=== PATIENT | male | born 1955 | race Caucasian/White ===

== ENCOUNTER → 2019-06-21 | Day surgery (SDC) | payer OTHER ==
[~2019-06-21] MED LIST: LACTATED RINGERS 1,000 ML IV SCH; LIDOCAINE 1% (10MG/ML) FOR IV START INTRADERMA PRN; LIDOCAINE 1% INJ 10MG/ML (20 ML MDV) ONE; PROPOFOL 10 MG/ML 20 ML VIAL IV ONE
[2019-06-21 06:58] VITALS: RESP 17; TEMP 97.7
--- NOTE | 2019-06-21 07:48 | P.PCN ---
Date of Procedure: 06/21/19 Procedure(s) Performed: BRIEF HISTORY: Patient is a 64-year-old, pleasant, male scheduled for an upper endoscopy for evaluation of severe dysphagia to certain solids for the last 2 weeks' duration. Has been complaining of epigastric pain, nausea and lower abdominal discomfort. Because of the dysphagia he had lost about 20 pounds. He was recently started on Prilosec 20 mg daily with no help. The emergency room on 3 different occasions and had a CT of abdomen and pelvis done last week which was negative. She was also complaining of some shortness of breath and covid 19 test was done which was negative.. PROCEDURE PERFORMED: Esophagogastroduodenoscopy with biopsy. PREOPERATIVE DIAGNOSIS: Dysphagia/weight loss of 2 weeks duration. IV sedation per anesthesia. PROCEDURE: After informed consent was obtained, the patient was brought into the endoscopy unit. IV sedation was administered by Anesthesia under continuous monitoring. Initially the Olympus GIF-140 video endoscope was inserted into the mouth. Esophagus intubated without any difficulty. It was gradually advanced into the stomach and duodenum and carefully examined. The bulb and the second part of the duodenum appeared normal. The scope at this time was withdrawn to the stomach, adequately insufflated with air, and upon careful examination, mucosa of the antrum, had mild diffuse gastritis and biopsies were done from this area. The body, cardia and the fundus appeared normal. The scope was then withdrawn into the esophagus. The GE junction was located at 39 cm from the incisors. Small sliding type hiatal hernia noted. There were linear erosions noted in the distal esophagus consistent with LA grade B reflux esophagitis. Rest of the esophagus appeared normal and the patient tolerated the procedure well. IMPRESSION: 1. Linear erosions in the distal esophagus consistent with LA grade B reflux esophagitis. 2. Small hiatal hernia 3. Mild diffuse antral gastritis. RECOMMENDATIONS: The findings of this examination were discussed with the patient as well as his family. He will increase the Prilosec to 20 mg twice daily to be taken half hour before breakfast and dinnertime and follow antireflux measures. He was advised to follow with the biopsy results and he'll be seen in office in 2 weeks.
[2019-06-21 07:59] VITALS: BP 99/72; PULSE 70
== END ==
LOC: ORWHC2ENDO 06:34
PROVIDERS: ATTEND Internal Medicine Gastroenterology
DX: K29.50 Unspecified chronic gastritis without bleeding (principal); K22.10 Ulcer of esophagus without bleeding; K21.9 Gastro-esophageal reflux disease without esophagitis; K44.9 Diaphragmatic hernia without obstruction or gangrene; J44.9 Chronic obstructive pulmonary disease, unspecified; Z79.82 Long term (current) use of aspirin; Z79.899 Other long term (current) drug therapy; Z87.891 Personal history of nicotine dependence
CPT/HCPCS: 43239; J2001; J2704; 88305

== ENCOUNTER 2019-08-28 09:02 | Day surgery (SDC) | payer OTHER ==
[2019-08-27 09:57] VITALS: BMI 30.9
[~2019-08-28 09:02] MED LIST changes: -LIDOCAINE 1% (10MG/ML) FOR IV START INTRADERMA PRN; -LIDOCAINE 1% INJ 10MG/ML (20 ML MDV) ONE; -PROPOFOL 10 MG/ML 20 ML VIAL IV ONE
[2019-08-28 09:30] VITALS: RESP 16; TEMP 97.6
[2019-08-28] MEDS ORDERED: PROPOFOL 10 MG/ML 20 ML VIAL IV ONE (10:11)
[2019-08-28 10:35] VITALS: BP 105/65
--- NOTE | 2019-08-28 10:36 | P.GSHP ---
History of Present Illness H&P Date: 08/28/19 CHIEF COMPLAINT: Colon screen HISTORY OF PRESENT ILLNESS: The patient is a 64-year-old male who presents for colon screen. Lower endoscopy was offered for further evaluation and management. PAST MEDICAL HISTORY: Please see list. PAST SURGICAL HISTORY: Please see list. MEDICATIONS: Please see list. ALLERGIES: Please see list. SOCIAL HISTORY: No illicit drug use FAMILY HISTORY: No reports of Crohn disease or ulcerative colitis. REVIEW OF ORGAN SYSTEMS: CONSTITUTIONAL: No reports of fevers or chills. PHYSICAL EXAM: VITAL SIGNS: Stable GENERAL: Well-developed pleasant in no acute distress. HEENT: No scleral icterus. Extraocular movements grossly intact. Moist buccal mucosa. NECK: Supple without lymphadenopathy. CHEST: Unlabored respirations. Equal bilateral excursions. CARDIOVASCULAR: Regular rate and rhythm. Distal 2+ pulses. ABDOMEN: Soft, nontender, nondistended. MUSCULOSKELETAL: No clubbing, cyanosis, or edema. ASSESSMENT: 1. Colon screen. PLAN: 1. Recommend proceeding with a lower endoscopy Past Medical History Past Medical History: Cancer, Chest Pain / Angina, COPD, GERD/Reflux Additional Past Medical History / Comment(s): hx skin cancer shoulder, emphysema, CP 06/20/19 - nl w/u, frequent "belching," occ loose stools, wgt loss 28# History of Any Multi-Drug Resistant Organisms: None Reported Past Surgical History: Heart Catheterization Additional Past Surgical History / Comment(s): ORIF lt 3rd finger - has pin, EGD 06/21/19 Past Anesthesia/Blood Transfusion Reactions: No Reported Reaction Smoking Status: Former smoker - Past Family History Father Family Medical History: Cancer Additional Family Medical History / Comment(s): lung cancer Brother(s) Additional Family Medical History / Comment(s): chrohns Sister(s) Additional Family Medical History / Comment(s): chrohns Medications and Allergies Home Medications Medication Instructions Recorded Confirmed Type Montelukast [Singulair] 10 mg PO HS 06/19/19 08/28/19 History Pantoprazole [Protonix] 40 mg PO DAILY 08/28/19 08/28/19 History hydrOXYzine HCL [Atarax] 50 mg PO DAILY PRN 08/28/19 08/28/19 History Allergies Allergy/AdvReac Type Severity Reaction Status Date / Time No Known Allergies Allergy Verified 08/28/19 09:28 Surgical - Exam Vital Signs Temp Pulse Resp BP Pulse Ox 97.6 F 57 L 16 143/81 96 08/28/19 09:23 08/28/19 09:23 08/28/19 09:23 08/28/19 09:23 08/28/19 09:23
--- NOTE | 2019-08-28 10:41 | P.PCN ---
Date of Procedure: 08/28/19 Description of Procedure: PREOPERATIVE DIAGNOSIS: Colonoscopy screening. History of polyps POSTOPERATIVE DIAGNOSIS: Colonoscopy screening. History of polyps OPERATION: Colonoscopy to the cecum, ileocecal valve and appendiceal orifice. SURGEON: Moni De La Paz MD. ANESTHESIA: MAC. INDICATIONS: The patient is a 64-year-old male who presents for colonoscopy screening. Last colonoscopy 5 years ago. Benefits and risks were described and informed consent was obtained. DESCRIPTION OF PROCEDURE: The patient had undergone Suprep. He had been brought into the operating room and laid in the left lateral decubitus position. After adequate intravenous sedation, the rectum was examined with 2% lidocaine jelly. The prostate was unremarkable. No external hemorrhoids were encountered. The rectal tone was within normal limits. No lesions were palpated in the rectal vault. An Olympus colonoscope was advanced until the cecum, ileocecal valve and appendiceal orifice were clearly viewed. The prep was excellent with clear visualization of the mucosal folds. The scope was removed with visualization of each mucosal fold. Scattered diverticulosis was encountered. No colonic polyps were found. No evidence of focal colitis was found. Retroflexion of the scope demonstrated grade 1 internal hemorrhoids without active bleeding or inflammation. The colon was desufflated. The patient had tolerated the procedure well. Withdrawal time was over 6 minutes. FINDINGS: Aronchick preparation quality scale 1 (1-5) Internal hemorrhoids, grade 1 No external prolapsed hemorrhoids. No arteriovenous malformations. No adenomatous polyps. No focal colitis. RECOMMENDATIONS: Lower endoscopy in 5 years, 2024 Plan - Discharge Summary Discharge Rx Participant: No New Discharge Prescriptions: Continue Montelukast [Singulair] 10 mg PO HS hydrOXYzine HCL [Atarax] 50 mg PO DAILY PRN PRN Reason: Insomnia Pantoprazole [Protonix] 40 mg PO DAILY Discharge Medication List Montelukast [Singulair] 10 mg PO HS 06/19/19 [History] Pantoprazole [Protonix] 40 mg PO DAILY 08/28/19 [History] hydrOXYzine HCL [Atarax] 50 mg PO DAILY PRN 08/28/19 [History] Follow up Appointment(s)/Referral(s): Moni De La Paz MD [STAFF PHYSICIAN] - As Needed Patient Instructions/Handouts: *Sur[facility] - (Anesthesia) Endoscopy Discharge Instructions Activity/Diet/Wound Care/Special Instructions: Repeat colonoscopy in 10 years, 2030 or Cologaurd Discharge Disposition: HOME SELF-CARE
[2019-08-28 10:59] VITALS: PULSE 63
== END 2019-08-28 11:16 | disposition home or self-care (01) ==
LOC: ORWHC2ENDO 09:02
PROVIDERS: ATTEND Surgery Plastic and Reconstructive Surgery
DX: Z12.11 Encounter for screening for malignant neoplasm of colon (principal); K57.30 Diverticulosis of large intestine without perforation or abscess without bleeding; K64.0 First degree hemorrhoids; Z86.010 Personal history of colon polyps; K21.9 Gastro-esophageal reflux disease without esophagitis; J43.9 Emphysema, unspecified; Z79.899 Other long term (current) drug therapy; Z98.890 Other specified postprocedural states; Z85.828 Personal history of other malignant neoplasm of skin; Z87.891 Personal history of nicotine dependence; Z80.1 Family history of malignant neoplasm of trachea, bronchus and lung; Z83.71 Family history of colonic polyps; Z83.79 Family history of other diseases of the digestive system
CPT/HCPCS: G0105; J2704